=== PATIENT | female | born 1990 | race Two or more races ===

== ENCOUNTER 2016-12-26 11:04 | Emergency (ER) | payer MEDICAID ==
[~2016-12-26] VITALS: Ht 160 cm; Wt 75.0 kg
[2016-12-26] MEDS ORDERED: FAMOTIDINE 20 MG/2 ML IVP ONE (12:00)
[2016-12-26] MEDS ORDERED: SODIUM CHLORIDE 0.9% 1,000ML IVBOLUS ONE (12:00)
[2016-12-26] MEDS ORDERED: MORPHINE SULFATE 4 MG/ML, 1ML IVPush PRN (12:00)
[2016-12-26] MEDS ORDERED: ONDANSETRON 2MG/ML, 2ML IVPush ONE (12:00)
[2016-12-26] MEDS ORDERED: SODIUM CHLORIDE FLUSH 10ML SYR IVF ONE (12:00)
[2016-12-26 12:06] LABS: HEMATOCRIT 45.4 % (34.6-47.8); HEMOGLOBIN 15.4 g/dL (11.7-16.4)
[2016-12-26 12:18] LABS: BLOOD UREA NITROGEN 11 mg/dL (7-18)
[2016-12-26] MEDS ORDERED: MORPHINE SULFATE 4 MG/ML, 1ML ONE (12:21)
[2016-12-26] MEDS ORDERED: FAMOTIDINE 20 MG/2 ML ONE (12:21)
[2016-12-26] MEDS ORDERED: ONDANSETRON 2MG/ML, 2ML ONE (12:22)
[2016-12-26 12:24] LABS: ASPARTATE AMINO TRANSFERASE 9 U/L (15-37)
[2016-12-26 12:42] VITALS: BP 114/76
[2016-12-26] MEDS ORDERED: DOCU-180 PO (12:57)
[2016-12-26] MEDS ORDERED: OMNIPAQUE 350 MG/ML, 100ML BOTTLE ONE (14:50)
== END 2016-12-26 15:37 | disposition home or self-care (01) ==
LOC: ED 13:51
DX: N83.201 Unspecified ovarian cyst, right side (principal)
CPT/HCPCS: 36415; 74000; 74177; 76700; 80053; 81003; 83690; 84703; 85025; 96361; 96374; 96375; 99285; J2405; J7030; Q9967; S0028

== ENCOUNTER 2019-02-28 09:24 | Emergency (ER) | payer SELFPAY ==
[~2019-02-28] VITALS: Ht 157.5 cm; Wt 76.7 kg
[~2019-02-28 09:24] MED LIST: DOCU-180 PO
[2019-02-28 09:35] VITALS: BP 114/58
[2019-02-28] MEDS ORDERED: OXYcodone/APAP 5/325MG TABLET PO ONE (10:00)
[2019-02-28] MEDS ORDERED: KETOROLAC 30 MG/1 ML IM ONE (10:00)
[2019-02-28] MEDS ORDERED: DIAZEPAM 5 MG TABLET PO ONE (10:00)
[2019-02-28] MEDS ORDERED: DIAZEPAM 5 MG TABLET ONE (10:04)
[2019-02-28] MEDS ORDERED: KETOROLAC 30 MG/1 ML ONE (10:05)
[2019-02-28] MEDS ORDERED: OXYcodone/APAP 5/325MG TABLET ONE (10:05)
== END 2019-02-28 11:12 | disposition home or self-care (01) ==
LOC: ED 10:25
DX: G89.29 Other chronic pain (principal); M79.661 Pain in right lower leg; M25.551 Pain in right hip; M79.651 Pain in right thigh; M54.16 Radiculopathy, lumbar region
CPT/HCPCS: 96372; 99283; J1885

== ENCOUNTER 2020-09-22 15:59 | Emergency (ER) | payer MEDICAID ==
[~2020-09-22] VITALS: Ht 160 cm; Wt 74.3 kg
[~2020-09-22 15:59] MED LIST changes: -DOCU-180 PO; +DOCU-192 PO
--- NOTE | 2020-09-22 16:40 | NUR ---
PT C/O RIGHT EYE REDNESS AND PAIN. PT EXPERIENCED THE SAME SYMPTOMS 2 WEEKS AGO, BUT IT WENT AWAY BY ITSELF. SYMPTOMS TODAY HAVE ROB PRESENT FOR 3 DAYS. R. EYE LID OBSERVED TO BE SWOLLEN AND RED. AWAITING ORDERS.
--- NOTE | 2020-09-22 18:21 | NUR ---
RN TO ROOM INFORMED PT THAT MD WILL BE WITH HER SOON POSSIBLE.
--- NOTE | 2020-09-22 19:09 | NUR ---
BEDSIDE REPORT RECEIVED FROM DERICK ANSARI, PT CARE TRANSFERRED AT THIS TIME. PT DENIES ADDITIONAL QUESTIONS OR NEEDS, BED IN LOWEST, RAILS ENGAGED, CALL LIGHT ON LAP, AWAITING ERP ORDERS, WCTM. pt nad, asking when they will be seen by the provider, RN explained they will be in as soon as possible. RN offered juice, water, sprite or coffee and pt declined at this time.
[2020-09-22 19:53] VITALS: BP 95/57
--- NOTE | 2020-09-22 19:53 | NUR ---
Patient given discharge instructions and they have confirmed that they understand the instructions. Patient ambulatory with steady gait. NAD, all questions answered appropriately, denies additional needs at this time. No personal belongings left in room after discharge.
== END 2020-09-22 19:54 | disposition home or self-care (01) ==
LOC: ED 19:00
DX: H00.011 Hordeolum externum right upper eyelid (principal)
CPT/HCPCS: 99283